=== PATIENT | female | born 1995 | race Caucasian/White ===

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

== ENCOUNTER 2017-01-07 21:00 | Outpatient (CLI) | payer OTHER ==
[2017-01-07 23:32] VITALS: BP 138/72; PULSE 88; RESP 18; TEMP 96.6
--- NOTE | 2017-03-22 08:39 | P.MSEPDOC ---
Presenting Problems - Arrival Data Date of Arrival on Unit: 01/07/17 Time of Arrival on Unit: 21:00 Mode of Transport: Wheelchair - Complaint OB-Reason for Admission/Chief Complaint: Rule Out PROM, Other Comment: back pain and cramping Medical History - Information : 1 Para: 0 Term: 0 : 0 Abortions: Spontaneous or Elective: 0 Number of Living Children: 0 - Gestational Age Gestational Age by LB (wks/days): 34 Weeks and 5 Days Review of Systems - Review of Systems Constitutional: No problems Breast: No problems ENT: No problems Cardiovascular: No problems Respiratory: No problems Gastrointestinal: No problems Genitourinary: No problems Musculoskeletal: No problems Neurological: No problems Skin: No problems Vital Signs - Temperature Temperature: 96.6 F Temperature Source: Temporal Artery Scan - Pulse Right Brachial Pulse Rate: 88 Pulse Assessment Method: Automatic Cuff - Respirations Respiratory Rate: 18 Oxygen Delivery Method: Room Air - Blood Pressure Right Arm Blood Pressure: 138/72 Blood Pressure Mean: 94 Blood Pressure Source: Automatic Cuff Medical Screen Scoring (Pre) - Cervical Exam Dilation: 1-3 cm = 1 Membranes: Intact - Uterine Contractions Frequency: N/A Duration: N/A Intensity: N/A - Maternal Vital Signs Maternal Temperature: N/A Signs of Preeclampsia: N/A Maternal Respirations: N/A - Maternal Trauma Maternal Trauma: N/A - Assessment Baseline FHR: 140 Heart Rate - NICHD Category: Category I (Normal) = 0 NST: Reactive Position: N/A - Total Score Total Score (Pre): 1 - Level of Risk Level of Risk: Low (0-5) Physician Notification (Pre) - Physician Notified Physician Notified Date: 01/07/17 Physician Notified Time: 21:50 Physician/Practitioner Notifed:: Dr. Thomson Spoke With: Dr. Thomson New Order Received: Yes - Notification Comment Comment: discharge pt home, follow up with spisac and notifiy her of 24 hour urine being invalid due to voiding here and not collecting it Disposition - Disposition OB Disposition: Discharge to home, Written follow up instructions reviewed Discharge Date: 01/07/17 Discharge Time: 22:05 I agree with the RN Medical Screening Exam: Yes Risk & Benefit of care provided described in d/c instruction: Yes Diagnosis: RELATED CONDITIONS, UNSPECIFIED, THIRD TRIMESTER (r/o PPROM )
== END 2017-01-07 22:05 | disposition home or self-care (01) ==
LOC: FBPOP 21:00
PROVIDERS: ATTEND Obstetrics & Gynecology
DX: O26.93 Pregnancy related conditions, unspecified, third trimester (principal); Z3A.34 34 weeks gestation of pregnancy
CPT/HCPCS: 59025; 84112; G0463; 99213

== ENCOUNTER 2017-02-14 19:03 | Outpatient (CLI) | payer OTHER ==
[2017-02-14] MEDS ORDERED: LACTATED RINGERS 1,000 ML IV ONE (19:45)
[2017-02-14 19:59] LABS: Appearance,Urine Cloudy (Clear); Bacteria,Urine Occasional /hpf; Bilirubin,Urine Negative (Negative); Glucose,Urine (UA) Negative (Negative); Ketones,Urine Negative (Negative); Leukocyte Esterase,Urine Negative (Negative); Mucus,Urine Rare /hpf; Nitrite,Urine Negative (Negative); PH, Urine 6.5 (5.0-8.0); Particle Count 5603; Protein,Urine Negative (Negative); RBC,Urine <1 /hpf (0-5); Specific Gravity,Urine 1.006 (1.001-1.035); Squamous Epithelial Cell,Urine 15 /hpf (0-4); UA Billing (MACRO vs. MICRO) MICRO; Urobilinogen,Urine <2.0 mg/dL (<2.0); WBC,Urine 1 /hpf (0-5)
[2017-02-14 20:42] VITALS: BP 141/88; PULSE 102; RESP 16; TEMP 97.5
--- NOTE | 2017-03-19 11:43 | P.MSEPDOC ---
Presenting Problems - Arrival Data Date of Arrival on Unit: 02/14/17 Time of Arrival on Unit: 19:03 Mode of Transport: Ambulatory - Complaint OB-Reason for Admission/Chief Complaint: Possible Onset of Labor, Rule Out SROM Comment: Patient presents thinking her water may have broken around 1530 this afternoon, states she has been having irregular contractions since Medical History - Information : 1 Para: 0 Term: 0 : 0 Abortions: Spontaneous or Elective: 0 Number of Living Children: 0 - Gestational Age Gestational Age by LB (wks/days): 39 Weeks and 3 Days Review of Systems - Review of Systems Constitutional: No problems Breast: No problems ENT: No problems Cardiovascular: No problems Respiratory: No problems Gastrointestinal: No problems Genitourinary: No problems Musculoskeletal: No problems Neurological: No problems Skin: No problems Vital Signs - Temperature Temperature: 97.5 F Temperature Source: Temporal Artery Scan - Pulse Pulse Oximetery Pulse Rate: 102 Pulse Assessment Method: Automatic Cuff - Respirations Respiratory Rate: 16 Oxygen Delivery Method: Room Air - Blood Pressure Sitting Blood Pressure: 141/88 Blood Pressure Mean: 105 Blood Pressure Source: Automatic Cuff Medical Screen Scoring (Pre) - Cervical Exam Dilation: 1-3 cm = 1 Effacement: More than 50% = 2 Membranes: Intact - Uterine Contractions Frequency: > 5 minutes apart = 1 Duration: > 40 seconds = 2 Intensity: N/A - Maternal Vital Signs Maternal Temperature: N/A Maternal Blood Pressure: N/A Signs of Preeclampsia: N/A Maternal Respirations: N/A - Maternal Trauma Maternal Trauma: N/A - Assessment Baseline FHR: 165 Heart Rate - NICHD Category: Category II (Indeterminate) = 3 NST: Non-reactive = 3 Position: N/A Station: N/A - Total Score Total Score (Pre): 12 - Level of Risk Level of Risk: High (10+) Physician Notification (Pre) - Physician Notified Physician Notified Date: 02/14/17 Physician Notified Time: 19:37 Physician/Practitioner Notifed:: Dr. Wilkes - Notification Comment Comment: initiate iv, administer 1 L bolus of LR, Send UA to rule out UTI. After discussing plan of care with patient she begins to experience anxiety about being treated at this hospital and thinks she should leave and be treated at [facility]. Dr. Wilkes called 1944 to update on patient's wishes to leave ama, physician states she would like to continue to treat patient to be sure that mom and baby are both healthy prior to authorizing discharge or patient can ultimately sign herself out AMA. Patient continues to express she would like to leave AMA. Patient leaves AMA at 1999 and verbalizes understanding this this is not the recommended course of treatmeant for the safety or both her and her baby. Physician notified at 1999 that patient signed out AMA. Physician Notification (Post) - Notification Comment Comment: given to FHTs wanted her to stay for hydration and continued montioring she refused and signed out AMA Disposition - Disposition OB Disposition: Discharge to home Discharge Date: 02/14/17 Discharge Time: 20:00 I agree with the RN Medical Screening Exam: Yes Risk & Benefit of care provided described in d/c instruction: Yes Diagnosis: FULL-TERM JORGE A ROM, ONSET LABOR WITHIN 24 HOURS OF RUPTURE
== END 2017-02-14 20:00 | disposition left against medical advice (07) ==
LOC: FBPOP 19:03
PROVIDERS: ATTEND Obstetrics & Gynecology Obstetrics
DX: O42.02 Full-term premature rupture of membranes, onset of labor within 24 hours of rupture (principal); Z3A.39 39 weeks gestation of pregnancy
CPT/HCPCS: 59025; 84112; 81001; G0463; 99213

== ENCOUNTER 2018-11-25 22:49 | Emergency (ER) | payer OTHER ==
[2018-11-25] MEDS ORDERED: SODIUM CHLORIDE 0.9% 1,000 ML IV STA (23:30)
[2018-11-26 00:14] LABS: Basophils % (A) 0 %; Eosinophils # (A) 0.2 k/uL (0-0.7); Eosinophils % (A) 2 %; HCT 38.6 % (34.0-46.0); Lymphocytes # (A) 2.8 k/uL (1.0-4.8); Lymphocytes % (A) 25 %; MCH 28.5 pg (25.0-35.0); MCHC 33.8 g/dL (31.0-37.0); MCV 84.4 fL (80.0-100.0); Mean Platelet Volume 6.8; Monocytes # (A) 0.5 k/uL (0-1.0); Monocytes % (A) 5 %; Neutrophils # (A) 7.4 k/uL (1.3-7.7); Neutrophils % (A) 66 %; Platelet Count 337 k/uL (150-450); RBC 4.58 m/uL (3.80-5.40); RDW 14.8 % (11.5-15.5); WBC 11.1 k/uL (4.0-11.0)
[2018-11-26 00:24] LABS: ALT 18 U/L (9-52); AST 19 U/L (14-36); African American GFR (CKD) >90 (>60 ml/min/1.73 sqM); Albumin 4.5 g/dL (3.5-5.0); Alkaline Phosphatase 60 U/L (38-126); Anion Gap 10 mmol/L; Blood Urea Nitrogen 12 mg/dL (7-17); Calcium 9.4 mg/dL (8.4-10.2); Carbon Dioxide 24 mmol/L (22-30); Chloride 104 mmol/L (98-107); Glucose 93 mg/dL (74-99); Potassium 4.2 mmol/L (3.5-5.1); Sodium 138 mmol/L (137-145); Total Bilirubin 0.2 mg/dL (0.2-1.3); Total Protein 7.1 g/dL (6.3-8.2)
[2018-11-26 00:26] LABS: Appearance,Urine Clear (Clear); Bilirubin,Urine Negative (Negative); Blood,Urine Negative (Negative); Color,Urine Light Yellow; Glucose,Urine (UA) Negative (Negative); Ketones,Urine Negative (Negative); Leukocyte Esterase,Urine Negative (Negative); Nitrite,Urine Negative (Negative); PH, Urine 5.5 (5.0-8.0); Protein,Urine Negative (Negative); Specific Gravity,Urine 1.017 (1.001-1.035); Urobilinogen,Urine <2.0 mg/dL (<2.0)
[2018-11-26 00:40] LABS: HCG,Quantitative Serum 1941.3 mIU/mL
--- NOTE | 2018-11-26 01:09 | ED ---
General Adult HPI - General Source: patient Mode of arrival: ambulatory Limitations: no limitations <Ariana Knox - Last Filed: 11/26/18 19:16> <Nora Terry - Last Filed: 11/27/18 05:45> - General Chief complaint: Abdominal Pain Stated complaint: Vaginal Bleed Early Time Seen by Provider: 11/25/18 23:48 - History of Present Illness Initial comments: 22-year-old female patient presents to the emergency department today for evaluation of lower abdominal cramping. Patient reports that she did also have some mild spotting this morning. There were no clots. She has not had to wear a pad and the bleeding has stopped. Patient states her last menstrual period was at the end of September and she did have a positive test a couple of days ago. Patient is wondering how far along she is. She denies any low back pain. Denies any hematuria, dysuria, urinary frequency, urinary urgency. Patient is . States that she previously had [facility] care with Dr. Mcbride and plans to make an appointment with her soon. Patient denies any recent rash, fever, chills, shortness breath, chest pain, nausea, vomiting, diarrhea, constipation, numbness, tingling, dizziness, weakness, headache, visual changes, or any other complaints. (Ariana Knox) - Related Data Home Medications Medication Instructions Recorded Confirmed Pedi Multivit No.25/Folic Acid 600 mcg PO DAILY 07/01/16 02/14/17 [Flintstones Multivit Chew Tab] Previous Rx's Medication Instructions Recorded Pnv No.95/Ferrous Fum/Folic AC 1 each PO DAILY #30 tablet 11/26/18 [ Multivitamin Tablet] Allergies Allergy/AdvReac Type Severity Reaction Status Date / Time amoxicillin Allergy Anaphylaxis Verified 02/14/17 19:27 Penicillins Allergy Anaphylaxis Verified 02/14/17 19:27 Review of Systems ROS Other: All systems not noted in ROS Statement are negative. <Ariana Knox - Last Filed: 11/26/18 19:16> ROS Other: All systems not noted in ROS Statement are negative. <Nora Terry - Last Filed: 11/27/18 05:45> ROS Statement: Those systems with pertinent positive or pertinent negative responses have been documented in the HPI. Past Medical History Past Medical History: No Reported History History of Any Multi-Drug Resistant Organisms: None Reported Past Surgical History: No Surgical Hx Reported Past Psychological History: No Psychological Hx Reported Smoking Status: Never smoker <Ariana Knox - Last Filed: 11/26/18 19:16> General Exam Limitations: no limitations General appearance: alert, in no apparent distress, other (Physical well- developed, well-nourished adult female patient in no acute distress. Vital signs upon presentation are temperature 99.4F, pulse 94, respirations 16, blood pressure 119/83, pulse ox 98% on room air.) Eye exam: Present: normal appearance, PERRL, EOMI. Absent: scleral icterus, conjunctival injection, periorbital swelling ENT exam: Present: normal exam, normal oropharynx, mucous membranes moist Respiratory exam: Present: normal lung sounds bilaterally. Absent: respiratory distress, wheezes, rales, rhonchi, stridor Cardiovascular Exam: Present: regular rate, normal rhythm, normal heart sounds. Absent: systolic murmur, diastolic murmur, rubs, gallop, clicks GI/Abdominal exam: Present: soft, normal bowel sounds. Absent: distended, tenderness, guarding, rebound, rigid Back exam: Present: normal inspection. Absent: CVA tenderness (R), CVA tenderness (L) Neurological exam: Present: alert, oriented X3, CN II-XII intact Psychiatric exam: Present: normal affect, normal mood Skin exam: Present: warm, dry, intact, normal color. Absent: rash <Ariana Knox M - Last Filed: 11/26/18 19:16> Course Vital Signs 11/25/18 11/26/18 23:21 01:35 Temperature 99.4 F 98 F Pulse Rate 94 82 Respiratory 16 18 Rate Blood Pressure 119/83 108/79 O2 Sat by Pulse 98 98 Oximetry Medical Decision Making - Lab Data Result diagrams: 11/26/18 00:00 11/26/18 00:00 <Ariana Knox - Last Filed: 11/26/18 19:16> - Lab Data Result diagrams: 11/26/18 00:00 11/26/18 00:00 <Nora Terry - Last Filed: 11/27/18 05:45> - Medical Decision Making 22-year-old female patient presented to the emergency department today for evaluation of lower abdominal cramping and spotting in early . Patient did have positive test a couple days ago. Last menstrual periods at the end of September. Physical examination was unremarkable. Abdomen was soft and nontender. I did recommend performing a pelvic examination with speculum and bimanual exam, patient declined this at this time. My attending Dr. Terry wasn't performed bedside ultrasound was unable to visualize intrauterine gestation at this time. Labs reviewed and did reveal hCG level of 1400. ABO/Rh is A+. I did discuss findings and results with the patient. She is resting comfortably in bed at this time. She'll be discharged to follow-up with [facility] for recheck as soon as possible. She was given a prescription to obtain repeat hCG level in 3 days. Return parameters discussed in detail. She verbalizes understanding and agrees with this plan. (Ariana Knox) Skyla evaluated the patient. I performed a bedside ultrasound which revealed no findings. Slightly patient is too early in for anything to be visible on transabdominal. There was no free fluid in the abdomen. Patient was in no pain and tolerated the exam well. This and patient stable for discharge home and outpatient follow-up. (Nora Terry) - Lab Data Lab Results 11/26/18 11/26/18 11/26/18 Range/Units 00:00 00:00 00:00 WBC 11.1 H (4.0-11.0) k/uL RBC 4.58 (3.80-5.40) m/uL Hgb 13.0 (11.4-16.0) gm/dL Hct 38.6 (34.0-46.0) % MCV 84.4 (80.0-100.0) fL MCH 28.5 (25.0-35.0) pg MCHC 33.8 (31.0-37.0) g/dL RDW 14.8 (11.5-15.5) % Plt Count 337 (150-450) k/uL Neutrophils % 66 % Lymphocytes % 25 % Monocytes % 5 % Eosinophils % 2 % Basophils % 0 % Neutrophils # 7.4 (1.3-7.7) k/uL Lymphocytes # 2.8 (1.0-4.8) k/uL Monocytes # 0.5 (0-1.0) k/uL Eosinophils # 0.2 (0-0.7) k/uL Basophils # 0.0 (0-0.2) k/uL Sodium 138 (137-145) mmol/L Potassium 4.2 (3.5-5.1) mmol/L Chloride 104 (98-107) mmol/L Carbon Dioxide 24 (22-30) mmol/L Anion Gap 10 mmol/L BUN 12 (7-17) mg/dL Creatinine 0.62 (0.52-1.04) mg/dL Est GFR (CKD-EPI)AfAm >90 (>60 ml/min/1.73 sqM) Est GFR (CKD-EPI)NonAf >90 (>60 ml/min/1.73 sqM) Glucose 93 (74-99) mg/dL Calcium 9.4 (8.4-10.2) mg/dL Total Bilirubin 0.2 (0.2-1.3) mg/dL AST 19 (14-36) U/L ALT 18 (9-52) U/L Alkaline Phosphatase 60 (38-126) U/L Total Protein 7.1 (6.3-8.2) g/dL Albumin 4.5 (3.5-5.0) g/dL HCG, Quant 1941.3 mIU/mL Urine Color Urine Appearance (Clear) Urine pH (5.0-8.0) Ur Specific Rector (1.001-1.035) Urine Protein (Negative) Urine Glucose (UA) (Negative) Urine Ketones (Negative) Urine Blood (Negative) Urine Nitrite (Negative) Urine Bilirubin (Negative) Urine Urobilinogen (<2.0) mg/dL Ur Leukocyte Esterase (Negative) Blood Type A Positive Blood Type Recheck No Antibody Screen NEGATIVE Spec Expiration Date 11/29/2018 - 229911/26/18 Range/Units 00:00 WBC (4.0-11.0) k/uL RBC (3.80-5.40) m/uL Hgb (11.4-16.0) gm/dL Hct (34.0-46.0) % MCV (80.0-100.0) fL MCH (25.0-35.0) pg MCHC (31.0-37.0) g/dL RDW (11.5-15.5) % Plt Count (150-450) k/uL Neutrophils % % Lymphocytes % % Monocytes % % Eosinophils % % Basophils % % Neutrophils # (1.3-7.7) k/uL Lymphocytes # (1.0-4.8) k/uL Monocytes # (0-1.0) k/uL Eosinophils # (0-0.7) k/uL Basophils # (0-0.2) k/uL Sodium (137-145) mmol/L Potassium (3.5-5.1) mmol/L Chloride (98-107) mmol/L Carbon Dioxide (22-30) mmol/L Anion Gap mmol/L BUN (7-17) mg/dL Creatinine (0.52-1.04) mg/dL Est GFR (CKD-EPI)AfAm (>60 ml/min/1.73 sqM) Est GFR (CKD-EPI)NonAf (>60 ml/min/1.73 sqM) Glucose (74-99) mg/dL Calcium (8.4-10.2) mg/dL Total Bilirubin (0.2-1.3) mg/dL AST (14-36) U/L ALT (9-52) U/L Alkaline Phosphatase (38-126) U/L Total Protein (6.3-8.2) g/dL Albumin (3.5-5.0) g/dL HCG, Quant mIU/mL Urine Color Light Yellow Urine Appearance Clear (Clear) Urine pH 5.5 (5.0-8.0) Ur Specific Rector 1.017 (1.001-1.035) Urine Protein Negative (Negative) Urine Glucose (UA) Negative (Negative) Urine Ketones Negative (Negative) Urine Blood Negative (Negative) Urine Nitrite Negative (Negative) Urine Bilirubin Negative (Negative) Urine Urobilinogen <2.0 (<2.0) mg/dL Ur Leukocyte Esterase Negative (Negative) Blood Type Blood Type Recheck Antibody Screen Spec Expiration Date Disposition Is patient prescribed a controlled substance at d/c from ED?: No Time of Disposition: 01:09 <Ariana Knox - Last Filed: 11/26/18 19:16> <Nora Terry - Last Filed: 11/27/18 05:45> Clinical Impression: Vaginal bleeding affecting early , Threatened Disposition: HOME SELF-CARE Condition: Good Instructions (If sedation given, give patient instructions): Threatened Miscarriage (ED) Additional Instructions: Have labs redrawn in 3 days. Follow-up with your [facility] for recheck as soon as possible. Return to the emergency department immediately for any increased pain, heavier bleeding. Return for any other new, worsening, or concerning symptoms. Prescriptions: Pnv No.95/Ferrous Fum/Folic AC [ Multivitamin Tablet] 1 each PO DAILY #30 tablet Referrals: None,Stated [Primary Care Provider] - 1-2 days
[2018-11-26 01:36] VITALS: BP 108/79; PULSE 82; RESP 18; TEMP 98
== END 2018-11-26 01:49 | disposition home or self-care (01) ==
LOC: EC 22:49
DX: O20.0 Threatened abortion (principal); Z67.10 Type A blood, Rh positive; Z88.0 Allergy status to penicillin; Z3A.00 Weeks of gestation of pregnancy not specified
CPT/HCPCS: 36415; 80053; 81003; 84702; 85025; 86850; 86900; 86901; 96360; 99284

== ENCOUNTER 2020-01-18 10:39 | Emergency (ER) | payer OTHER ==
[2020-01-18 10:42] VITALS: RESP 18
--- NOTE | 2020-01-18 10:55 | ED ---
General Adult HPI - General Chief complaint: Urogenital Stated complaint: Possible UTI Time Seen by Provider: 01/18/20 10:46 Source: patient, RN notes reviewed Mode of arrival: ambulatory Limitations: no limitations - History of Present Illness Initial comments: 24-year-old female presents emergency Department chief complaint of dysuria. Patient states symptoms started this morning. Patient states he noticed some blood in her urine. She states it was not vaginal bleeding. Patient states she does have mild left flank pain but states pain is very minimal. Denies any current vomiting, diarrhea, constipation no history kidney stones. Denies any chance . Patient denies any other associated symptoms. - Related Data Previous Rx's Medication Instructions Recorded Cephalexin [Keflex] 500 mg PO Q6HR #28 cap 01/18/20 Ondansetron Odt [Zofran Odt] 4 mg PO Q8HR PRN #10 tab 01/18/20 Allergies Allergy/AdvReac Type Severity Reaction Status Date / Time amoxicillin Allergy Anaphylaxis Verified 01/18/20 11:04 Penicillins Allergy Anaphylaxis Verified 01/18/20 11:04 Review of Systems ROS Statement: Those systems with pertinent positive or pertinent negative responses have been documented in the HPI. ROS Other: All systems not noted in ROS Statement are negative. Past Medical History Past Medical History: No Reported History History of Any Multi-Drug Resistant Organisms: None Reported Past Surgical History: Section Past Psychological History: No Psychological Hx Reported Smoking Status: Vaper Past Alcohol Use History: None Reported Past Drug Use History: None Reported General Exam Limitations: no limitations General appearance: alert, in no apparent distress Head exam: Present: atraumatic, normocephalic, normal inspection Respiratory exam: Present: normal lung sounds bilaterally. Absent: respiratory distress, wheezes, rales, rhonchi, stridor Cardiovascular Exam: Present: regular rate, normal rhythm, normal heart sounds. Absent: systolic murmur, diastolic murmur, rubs, gallop, clicks GI/Abdominal exam: Present: soft, tenderness (Mild suprapubic), normal bowel sounds. Absent: distended, guarding, rebound, rigid Back exam: Present: normal inspection, CVA tenderness (L) (Mild). Absent: CVA tenderness (R) Skin exam: Present: warm, dry, intact, normal color. Absent: rash Course Vital Signs 01/18/20 10:40 Temperature 98.1 F Pulse Rate 93 Respiratory 18 Rate Blood Pressure 112/61 O2 Sat by Pulse 100 Oximetry Medical Decision Making - Medical Decision Making 24-year-old presented for dysuria. Patient pain is mild this time. Patient has more dysuria that symptoms urinalysis reveals greater than 182 red and white cells. Patient most likely has a hemorrhagic cystitis. Symptoms are not consistent with kidney stone at this point. Patient will be discharged with oral antibiotics. I did recommend Rocephin IM patient refused. Patient we discharged in stable condition return parameters were discussed. - Lab Data Lab Results 01/18/20 01/18/20 Range/Units 10:53 10:53 Urine Color Yellow Urine Appearance Cloudy H (Clear) Urine pH 5.5 (5.0-8.0) Ur Specific [place] 1.015 (1.001-1.035) Urine Protein 2+ H (Negative) Urine Glucose (UA) Negative (Negative) Urine Ketones Negative (Negative) Urine Blood Large H (Negative) Urine Nitrite Negative (Negative) Urine Bilirubin Negative (Negative) Urine Urobilinogen <2.0 (<2.0) mg/dL Ur Leukocyte Esterase Large H (Negative) Urine RBC >182 H (0-5) /hpf Urine WBC >182 H (0-5) /hpf Urine WBC Clumps Many H (None) /hpf Ur Squamous Epith Cells 9 H (0-4) /hpf Urine Bacteria Rare H (None) /hpf Urine Mucus Occasional H (None) /hpf Urine HCG, Qual Not Detected (Not Detectd) Disposition Clinical Impression: Urinary tract infection Disposition: HOME SELF-CARE Condition: Stable Instructions (If sedation given, give patient instructions): Urinary Tract Infection in Women (ED) Additional Instructions: Please return to the Emergency Department if symptoms worsen or any other concerns. Prescriptions: Cephalexin [Keflex] 500 mg PO Q6HR #28 cap Ondansetron Odt [Zofran Odt] 4 mg PO Q8HR PRN #10 tab PRN Reason: Nausea Is patient prescribed a controlled substance at d/c from ED?: No Referrals: None,Stated [Primary Care Provider] - 1-2 days Time of Disposition: 11:43
[2020-01-18 11:13] LABS: Appearance,Urine Cloudy (Clear); Bacteria,Urine Rare /hpf; Bilirubin,Urine Negative (Negative); Blood,Urine Large (Negative); Color,Urine Yellow; Glucose,Urine (UA) Negative (Negative); Ketones,Urine Negative (Negative); Leukocyte Esterase,Urine Large (Negative); Mucus,Urine Occasional /hpf; Nitrite,Urine Negative (Negative); PH, Urine 5.5 (5.0-8.0); Protein,Urine 2+ (Negative); RBC,Urine >182 /hpf (0-5); Specific Gravity,Urine 1.015 (1.001-1.035); Squamous Epithelial Cell,Urine 9 /hpf (0-4); Urobilinogen,Urine <2.0 mg/dL (<2.0); WBC,Urine >182 /hpf (0-5)
[2020-01-18 11:56] VITALS: BP 112/63; PULSE 62; TEMP 98.2
== END 2020-01-18 11:50 | disposition home or self-care (01) ==
LOC: EC 10:39
DX: N39.0 Urinary tract infection, site not specified (principal); F17.290 Nicotine dependence, other tobacco product, uncomplicated; Z88.0 Allergy status to penicillin
CPT/HCPCS: 81001; 81025; 87086; 99283

== ENCOUNTER 2021-02-02 22:32 | Inpatient (IN) | payer OTHER ==
[2021-02-02] MEDS ORDERED: CARBOPROST TROMETHAMINE 250 MCG/ML 1 ML AMP IM PRN (23:04)
[2021-02-02] MEDS ORDERED: METHYLERGONOVINE 0.2 MG/ML 1 ML AMP IM PRN (23:04)
[2021-02-02] MEDS ORDERED: LIDOCAINE 0.5% (PF) 5 MG/ML (50 ML SDV) SQ PRN (23:04)
[2021-02-02] MEDS ORDERED: TERBUTALINE 1 MG/ML VIAL SQ PRN (23:04)
[2021-02-02] MEDS ORDERED: OXYTOCIN 10 UNIT/ML 1 ML VIAL IM PRN (23:04)
[2021-02-02] MEDS ORDERED: OXYTOCIN 30 UNITS/500 ML NS 30 UNIT in SALINE 1 500ML.BAG IV SCH (23:15)
[2021-02-02] MEDS ORDERED: LACTATED RINGERS 1,000 ML IV SCH (23:15)
[2021-02-03 00:05] LABS: Anisocytosis Slight; Basophils % (A) 0 %; Eosinophils % (A) 0 %; HCT 33.9 % (34.0-46.0); Hypochromasia Slight; Lymphocytes # (A) 2.3 k/uL (1.0-4.8); Lymphocytes % (A) 16 %; MCH 24.8 pg (25.0-35.0); MCHC 32.4 g/dL (31.0-37.0); MCV 76.5 fL (80.0-100.0); Mean Platelet Volume 8.2; Microcytosis Slight; Monocytes # (A) 0.7 k/uL (0-1.0); Monocytes % (A) 5 %; Neutrophils # (A) 10.8 k/uL (1.3-7.7); Neutrophils % (A) 76 %; Platelet Count 293 k/uL (150-450); Poikilocytosis Slight; RBC 4.43 m/uL (3.80-5.40); RDW 16.7 % (11.5-15.5); WBC 14.1 k/uL (3.8-10.6)
[2021-02-03 00:19] LABS: Amphetamine Screen,Urine Not Detected (NotDetected); Barbiturate Screen,Urine Not Detected (NotDetected); Benzodiazepines Screen,Urine Not Detected (NotDetected); Cocaine Screen,Urine Not Detected (NotDetected); Methadone Screen, Urine Not Detected (NotDetected); Opiate Screen,Urine Not Detected (NotDetected); Oxycodone Screen, Urine Not Detected (NotDetected); Phencyclidine Screen,Urine Not Detected (NotDetected); Tricyclic Antidepressant,Urine Not Detected (NotDetected); Urn Cannabinoid Scrn Not Detected (NotDetected)
--- NOTE | 2021-02-03 00:29 | P.HPOB ---
History of Present Illness H&P Date: 02/02/21 Chief Complaint: Contractions This is a 25-year-old female 3 para 2 with an estimated date of confinement of 02/09/2021, estimated gestational age of 39-0/7 weeks, who presents complaining of contractions beginning at approximately 2 PM this afternoon. Her care has been with Dr. Jimenes out of [facility]. She decided not to go there this evening after she called labor and delivery and felt this respected by a nurse there. course has been essentially uncomplicated this . She did have issues with low iron and has been taking iron supplementation. record was requested from [facility] and was received. labs: Blood type-A+ Antibody screen-negative Initial hemoglobin-12.2, repeat hemoglobin-9.7 RPR-nonreactive Hepatitis B surface antigen-negative HIV-nonreactive GC/Chlamydia-negative Rubella-immune 1 hour Glucola-117 Group B streptococcus-negative Obstetrical history: . Street of the section at full term for malpresentation with her first with an weight of 7 lbs. 4 oz. Her second was full-term and vaginal after with infant weight of 8 lbs. 3 oz. and epidural anesthesia. That was complicated by cholestasis of . Gynecologic history: No history of sexual transmitted diseases. Review of Systems Constitutional: Denies chills, Denies fever Eyes: denies blurred vision, denies pain Ears, nose, mouth and throat: Denies headache, Denies sore throat Cardiovascular: Denies chest pain, Denies shortness of breath Respiratory: Denies cough Gastrointestinal: Reports abdominal pain Genitourinary: Reports pelvic pain, Reports Musculoskeletal: Reports low back pain Integumentary: Denies pruritus, Denies rash Neurological: Denies numbness, Denies weakness Psychiatric: Denies anxiety, Denies depression Past Medical History Past Medical History: No Reported History History of Any Multi-Drug Resistant Organisms: None Reported Past Surgical History: Section Past Anesthesia/Blood Transfusion Reactions: No Reported Reaction Past Psychological History: No Psychological Hx Reported Smoking Status: Vaper (Daily) Past Alcohol Use History: None Reported Past Drug Use History: None Reported Medications and Allergies Home Medications Medication Instructions Recorded Confirmed Type No Known Home Medications 02/02/21 02/02/21 History Allergies Allergy/AdvReac Type Severity Reaction Status Date / Time amoxicillin Allergy Anaphylaxis Verified 02/02/21 22:36 Penicillins Allergy Anaphylaxis Verified 02/02/21 22:36 Exam Osteopathic Statement: *. No significant issues noted on an osteopathic structural exam other than those noted in the History and Physical/Consult. Intake and Output 02/02/21 02/02/21 02/03/21 14:59 22:59 06:59 Other: Weight 77.564 kg HEENT: Within normal limits Heart: Regular rate and rhythm Lungs: Clear to auscultation bilaterally Abdomen: Cervix: Initially 5-1/2 cm/90%/-2 station with bulging bag heart tones: Category 1, reactive Contractions: Every 2-3 minutes Extremities: Negative Homans Assessment and Plan (1) 39 weeks gestation of Current Visit: Yes Status: Acute Code(s): Z3A.39 - 39 WEEKS GESTATION OF SNOMED Code(s): 21209500 (2) Previous delivery affecting Current Visit: Yes Status: Acute Code(s): O34.219 - MATERNAL CARE FOR UNSP TYPE SCAR FROM PREVIOUS DEL SNOMED Code(s): 402176337 Plan: Anticipate vaginal delivery after section. Patient has signed consent form for this procedure. Epidural anesthesia if desired. Expectant management.
--- NOTE | 2021-02-03 00:32 | P.PROBDLV ---
Vaginal Delivery Note - . Vaginal Delivery Note: The patient progressed fairly rapidly to complete dilation after artificial rupture membranes with clear fluid noted. She was not able to receive her epidural yet. Once reaching complete, she pushed for approximate 3 pushes and 's head came to a crown. Nose and mouth were bulb suctioned. With one further push, the remainder the infant easily delivered and was placed on mother's abdomen. Cord was clamped and cut after allowing cord to finish pulsating. A viable female was noted with scores of 9 at 1 minute and 9 at 5 minutes and infant weight of 7 pounds 8.8 ounces. After approximately 20 minutes of waiting for the placenta to deliver, I helped to manually express the placenta. It appeared intact but did have some calcifications in it. Uterus did contract well after oxytocin was given and uterine massage was carried out. Estimated blood loss is approximately 150 mL's. Both mother and infant are in stable condition. Placenta will be sent to pathology due to calcifications.
[2021-02-03] MEDS ORDERED: HYDROCORTISONE 2.5% RECTAL CREAM 30 GM TUBE RECTAL PRN (00:46)
[2021-02-03] MEDS ORDERED: BENZOCAINE/MENTHOL SPRAY 1 GM/SPRAY AEROSOL TOPICAL PRN (00:46)
[2021-02-03] MEDS ORDERED: OXYTOCIN 30 UNITS/500 ML NS 30 UNIT in SALINE 1 500ML.BAG IV SCH (00:46)
[2021-02-03] MEDS ORDERED: diphenhydrAMINE 50 MG/ML 1 ML VIAL IVP PRN ×2 (00:46)
[2021-02-03] MEDS ORDERED: diphenhydrAMINE 50 MG CAP PO PRN (00:46)
[2021-02-03] MEDS ORDERED: ACETAMINOPHEN TAB 325 MG TAB PO PRN (00:46)
[2021-02-03] MEDS ORDERED: SIMETHICONE 80 MG CHEWABLE PO PRN (00:46)
[2021-02-03] MEDS ORDERED: diphenhydrAMINE 25 MG CAP PO PRN (00:46)
[2021-02-03] MEDS ORDERED: LANOLIN CREAM 5 GM TUBE TOPICAL PRN (00:46)
[2021-02-03] MEDS ORDERED: ZOLPIDEM 5 MG TAB PO PRN (01:15)
[2021-02-03] MEDS: IBUPROFEN 600 MG TAB PO PRN ×2 (01:32→19:45)
[2021-02-03] MEDS: SENNOSIDES-DOCUSATE SODIUM 1 EACH TAB PO SCH ×2 (17:23→19:44)
[2021-02-04 07:16] LABS: Anisocytosis Slight; Basophils % (A) 0 %; Eosinophils # (A) 0.1 k/uL (0-0.7); Eosinophils % (A) 1 %; HCT 31.5 % (34.0-46.0); HGB 9.8 gm/dL (11.4-16.0); Hypochromasia Moderate; Lymphocytes # (A) 2.9 k/uL (1.0-4.8); Lymphocytes % (A) 28 %; MCH 24.6 pg (25.0-35.0); MCHC 31.2 g/dL (31.0-37.0); MCV 78.9 fL (80.0-100.0); Mean Platelet Volume 7.9; Monocytes # (A) 0.6 k/uL (0-1.0); Monocytes % (A) 6 %; Neutrophils # (A) 6.4 k/uL (1.3-7.7); Neutrophils % (A) 63 %; Platelet Count 280 k/uL (150-450); RBC 3.99 m/uL (3.80-5.40); RDW 17.1 % (11.5-15.5); WBC 10.2 k/uL (3.8-10.6)
--- NOTE | 2021-02-04 08:55 | P.DS ---
Providers Date of admission: 02/02/21 22:52 Expected date of discharge: 02/04/21 Attending physician: Zoe Cruz Primary care physician: Stated None - Discharge Diagnosis(es) (1) 39 weeks gestation of Current Visit: Yes Status: Acute (2) Previous delivery affecting Current Visit: Yes Status: Acute Hospital Course: This is a 25-year-old female 3 para 2 at 39 and one sevenths weeks who presented in active labor. She delivered vaginally a vaginal after section of a viable female with scores of 9 at 1 minute and 9 at 5 minutes and infant weight of 7 pounds 8.8 ounces. Her course has been uncomplicated. She is breast-feeding. Lochia is decreasing. Pain is well-controlled. Vital signs are stable. Abdomen is soft with fundus firm and nontender. Extremities show negative Homans. Impression is status post vaginal after section day #1. Plan is to discharge home today. Routine instructions are given. She is advised to follow up with her OB, Dr. Jimenes, in 6 weeks. She is advised to call her doctor's office if she has any further questions or concerns after discharge. She will be given a prescription for a breast pump. She will also be given a prescription for ibuprofen. Procedures: Vaginal after section of a viable female on 02/03/2021 Patient Condition at Discharge: Stable Plan - Discharge Summary New Discharge Prescriptions: New Ibuprofen [Motrin] 600 mg PO Q6HR PRN #60 tab PRN Reason: Mild Pain (Scale 1 To 3) Discharge Medication List Ibuprofen [Motrin] 600 mg PO Q6HR PRN #60 tab 02/04/21 [Rx] Follow up Appointment(s)/Referral(s): Mariela Jimenes MD [STAFF PHYSICIAN] - 6 Weeks Activity/Diet/Wound Care/Special Instructions: Instructions 1. Do not begin any exercise program for 3 weeks. 2. Do not resume sexual relations for 3 weeks or longer if uncomfortable. 3. You may take tub baths or showers at any time. 4. You may use tampons if desired after 3 weeks. 5. Keep the area of episiotomy (stitches) clean and dry. 6. If you are not nursing, wear a good fitting, supportive bra during the day and limit fluid intake for at least 1 week to prevent breast engorgement. 7. Call the office, [phone], within the next week to make appointment for your 6 week checkup if it has not already been made. 8. Report any of the following occurrences to the doctor promptly: a. Heavy, excessive bleeding b. Chills, fever c. Burning or frequency of urination d. Pain or redness and breasts if nursing e. Increasing pain or swelling in episiotomy (stitches). In addition to the above instructions, the following additional should be followed: 1. No heavy lifting or straining (exercising) until after 6 week checkup. 2. Keep abdominal incision clean and dry: You may wear a dressing if more comfortable. 3. Make office appointment for 10 days after going home or as instructed by her doctor. Discharge Disposition: HOME SELF-CARE
[2021-02-04 09:07] VITALS: BP 103/64; PULSE 89; RESP 16; TEMP 98.1
[2021-02-04] MEDS: SENNOSIDES-DOCUSATE SODIUM 1 EACH TAB PO SCH (11:42)
--- NOTE | 2021-02-04 13:31 | P.MSEPDOC ---
Presenting Problems - Arrival Data Date of Arrival on Unit: 02/02/21 Time of Arrival on Unit: 22:34 Mode of Transport: Ambulatory - Complaint OB-Reason for Admission/Chief Complaint: Possible Onset of Labor Comment: Pt presents to triage with c/o contx that started around 1430. Pt states contractions are approx 2-5 minutes apart Medical History - Information : 3 Para: 2 Term: 2 : 0 Abortions: Spontaneous or Elective: 0 Number of Living Children: 2 - Gestational Age Gestational Age by LB (wks/days): 39 Weeks and 1 Days - History Complications: Prior , Smoker Comment: Pt reports vaping daily Review of Systems - Review of Systems Constitutional: No problems Breast: No problems ENT: No problems Cardiovascular: No problems Respiratory: No problems Gastrointestinal: No problems Genitourinary: No problems Musculoskeletal: No problems Neurological: No problems Skin: No problems Vital Signs - Temperature Temperature: 98.1 F Temperature Source: Oral - Pulse Pulse Oximetery Pulse Rate: 89 Pulse Assessment Method: Automatic Cuff - Respirations Respiratory Rate: 16 Oxygen Delivery Method: Room Air O2 Sat by Pulse Oximetry: 98 - Blood Pressure Right Arm Blood Pressure: 103/64 Blood Pressure Mean: 77 Blood Pressure Source: Automatic Cuff Medical Screen Scoring - Cervical Exam Dilation (cm): 5.5 Effacement (%): 80 Station: -2 Membranes: Intact - Uterine Contractions Frequency From (mins): 2 Frequency To (mins): 3 Duration From (seconds): 50 Duration To (seconds): 80 Intensity: Strong Resting: Soft to palpation - Assessment - Baby A Baseline FHR: 150 Heart Rate - NICHD Category: Category I (Normal) NST: Reactive Physician Notification - Physician Notified Physician Notified Date: 02/02/21 Physician Notified Time: 22:59 Physician: Zoe Cruz Order Received: Yes - Notification Comment Comment: Dr. Cruz called and updated re: DOM, care with Dr. Carolina calix. , status, contx pattern, pain, SVE, GBS negative per pt, history of with first baby due to malpresentation and successful with second baby, and pt desire for epidural. Orders received to admit pt, start IV, obtain UDS, and pt can have epidural if desired. Dr. Cruz states she will be on her way to hospital shortly Maternal Triage Index - Maternal Triage Index Presenting for scheduled procedure w/no complaint: No - Stat/Priority 1 Stat Priority 1: No - Urgent/Priority 2 Urgent Priority 2: No - Prompt/Priority 3 Prompt Priority 3: Yes Criteria Met for Priority 3: Signs of active labor >34 weeks Disposition - Disposition OB Disposition: Admit, LDRP Suite Discharge Date: 02/04/21 Discharge Time: 11:45 I agree with the RN Medical Screening Exam: Yes Case reviewed; plan agreed upon as documented in EMR&OBIX.: Yes Diagnosis: ENCOUNTER FOR FULL-TERM UNCOMPLICATED DELIVERY
== END 2021-02-04 11:45 | disposition home or self-care (01) | DRG 807 ==
LOC: FBPOP 22:32 → 4FBP 22:52
PROVIDERS: ADMIT Obstetrics & Gynecology; ATTEND Obstetrics & Gynecology
PROC: 10E0XZZ Delivery of Products of Conception, External Approach (ICD-10-PCS; principal; 2021-02-03)
DX: O34.219 Maternal care for unspecified type scar from previous cesarean delivery (principal); Z37.0 Single live birth; Z3A.39 39 weeks gestation of pregnancy
CPT/HCPCS: 59025; 80306; 85025; 86850; 86900; 86901; 99213